=== PATIENT | female | born 1935 | race Caucasian/White ===

== ENCOUNTER → 2016-09-30 | Outpatient (REF) ==
[~2016-09-30] MED LIST: CALTRATE 600 +1 TAB PO; DIOVAN80 M1 PO; DITROPAN 5MG TAB5 MG PO; FOSAMAX 70MG TA70 MG PO; GLUCOSAMINE PO; HYDROCHLOR50 MG PO; NORVASC2.5 MG PO; PREDNISONE10 MG; PRILOSEC 20MG20 MG PO; PROZAC 20MG20 MG PO; REGLAN 5MG5 MG PO; TRAMADOL50 MG PO; TRAZODONE150 MG PO; VITAMIN C500 MG PO; VITAMIN E800 I1 PO; [UNRECOGNIZED DRUG - OTHER]
== END ==
LOC: ZLAB.WCH 18:17
DX: Z01.89 Encounter for other specified special examinations (principal)

== ENCOUNTER → 2016-11-24 | Outpatient (REF) ==
[2016-11-24 19:12] LABS: THYROID STIMULATING HORMONE 1.79 uIU/mL (0.465-4.680)
== END ==
LOC: ZLAB.WCH 18:19
PROVIDERS: Internal Medicine
DX: Z01.89 Encounter for other specified special examinations (principal)

== ENCOUNTER → 2017-08-23 | Outpatient (CLI) | payer MEDICARE, BC ==
[2017-08-23 13:11] LABS: ARTERIAL BLD GAS TCO2 CT 25.1; ARTERIAL BLOOD GAS BASE EXCESS 3.3 (-2-2); ARTERIAL BLOOD GAS HCO3 24.2 meq/L (22-26); ARTERIAL BLOOD GAS PCO2 27.6 mmHg (35-45); ARTERIAL BLOOD GAS PO2 99.6 mmHg (80-100); ARTERIAL BLOOD GAS pH 7.56 (7.35-7.45)
== END ==
LOC: COL.VAS 12:19
PROVIDERS: Internal Medicine Pulmonary Disease
DX: J45.909 Unspecified asthma, uncomplicated (principal)

== ENCOUNTER → 2017-10-17 | Outpatient (CLI) | payer MEDICARE, BC | LOC: COL.VAS 13:30 | DX: I08.0 Rheumatic disorders of both mitral and aortic valves (principal) ==